=== PATIENT | female | born 1940 | race Caucasian/White ===

== ENCOUNTER 2022-01-06 18:53 | Emergency (ER) | payer MEDICARE ==
[~2022-01-06] VITALS: Ht 154.9 cm; Wt 64.1 kg
[2022-01-06] MEDS ORDERED: DONE-51 PO (20:01)
[2022-01-06] MEDS ORDERED: CETI10TA58 PO (20:01)
[2022-01-06] MEDS ORDERED: LISI10TA24 PO (20:01)
[2022-01-06] MEDS ORDERED: TRAZ-252 PO (20:01)
[2022-01-06] MEDS ORDERED: VENL-67 PO (20:01)
[2022-01-06] MEDS ORDERED: CHOL200059 PO (20:01)
[2022-01-06] MEDS ORDERED: METO-408 PO (20:01)
[2022-01-06] MEDS ORDERED: ASPI-1444 PO (20:01)
[2022-01-06] MEDS ORDERED: ALEN70TA80 PO (20:01)
[2022-01-06] MEDS ORDERED: TRAZ-186 PO (20:01)
[2022-01-06] MEDS ORDERED: MECL-160 PO (20:01)
[2022-01-06 20:44] VITALS: BP 155/74
[2022-01-06 21:05] LABS: BASOPHILS % (AUTO) 0.8 % (0.0-2.0); EOSINOPHILS % (AUTO) 0.4 % (1.0-6.0); HEMATOCRIT 37.7 % (36-46); HEMOGLOBIN 12.4 g/dL (12.0-16.0); LYMPHOCYTES # (AUTO) 1.7 K/uL (1.0-4.8); LYMPHOCYTES % (AUTO) 24.5 % (22.0-44.0); MEAN CORPUSCULAR HEMOGLOBIN 30.6 pg (26.0-34.0); MEAN CORPUSCULAR HGB CONC 32.9 G/dL (31.0-37.0); MEAN CORPUSCULAR VOLUME 93 fL (80-100); MONOCYTES # (AUTO) 0.6 K/uL (0.1-1.0); MONOCYTES % (AUTO) 8.6 % (2.0-9.0); NEUTROPHILS # (AUTO) 4.5 K/uL (1.8-7.7); NEUTROPHILS % (AUTO) 65.7 % (40.0-70.0); PLATELET COUNT (AUTO) 270 K/uL (150-450); RED BLOOD CELL COUNT(AUTO) 4.05 MIL/uL (4.00-5.20); RED CELL DISTRIBUTION WIDTH 14.9 % (11.5-14.5)
[2022-01-06 21:10] LABS: ANION GAP 7 mmol/L (8-16); CALCIUM, TOTAL 10.4 mg/dL (8.8-10.5); CARBON DIOXIDE 28 mmol/L (22-29); CHLORIDE 105 mmol/L (98-107); CREATININE 1.15 mg/dL (0.60-1.30); GLOMERULAR FILTR. RATE CALC 45 mL/min (>60); GLUCOSE,RANDOM 113 mg/dL (70-110); POTASSIUM 4.4 mmol/L (3.5-5.1); SODIUM SERUM 140 mmol/L (136-145); UREA NITROGEN, BLOOD 27 mg/dL (7-18)
[2022-01-06 21:15] LABS: ALANINE AMINOTRANSFERASE 24 U/L (12-78); ALBUMIN 3.8 g/dL (3.4-5.0); ALKALINE PHOSPHATASE 90 U/L (46-116); ASPARTATE AMINOTRANSFERASE 19 U/L (15-37); BILIRUBIN,TOTAL 0.3 mg/dL (0.1-1.0); TOTAL PROTEIN, SERUM 7.2 g/dL (6.4-8.2)
== END 2022-01-06 22:03 | disposition home or self-care (01) ==
LOC: EMS 18:56
DX: R45.851 Suicidal ideations (principal); I10 Essential (primary) hypertension; E78.00 Pure hypercholesterolemia, unspecified; F41.9 Anxiety disorder, unspecified; F32.9 Major depressive disorder, single episode, unspecified; Z79.899 Other long term (current) drug therapy
CPT/HCPCS: 99285; 80053; 85025; 36415; G0480